=== PATIENT | male | born 1970 | race Caucasian/White ===

== ENCOUNTER → 2017-06-07 | Day surgery (SDC) | payer BC ==
[~2017-06-07] VITALS: Ht 170.2 cm; Wt 79.9 kg
[~2017-06-07] MED LIST: ATROPINE SULFATE 0.1 MG/ML 5ML SYR IV PRN; DEXAMETHASONE SOD INJ 4 MG/ML VIAL ONE; EpHEDrine SULFATE INJ 50 MG/ML AMP IV PRN; FENTANYL CITRATE INJ 50 MCG/1 ML 2 ML VIAL IV PRN; FENTANYL CITRATE INJ 50 MCG/1 ML 2 ML VIAL ONE; FLUMAZENIL 0.1 MG/1 ML 10 ML VIAL IV PRN; GLUCAGON FOR INJ 1 MG VIAL IV STA; HYDROmorphone INJ 2 MG/ML SYR/VIAL IV PRN; LABETALOL HCL IV 5 MG/ML 20ML IV ONE; LABETALOL HCL IV 5 MG/ML 20ML IV PRN; LIDOCAINE HCL 2% 2 ML VIAL (20MG/ML) ONE; MEPERIDINE HCL 25 MG/ML CARP IV PRN; NALOXONE HCL 0.4 MG/1 ML VIAL/CARP IV PRN; OMEP40CA41 PO; ONDANSETRON INJ 2 MG/ML 2 ML VIAL IV PRN; ONDANSETRON INJ 2 MG/ML 2 ML VIAL ONE; PHENYLEPHRINE 100MCG/ML 5ML SYR IV PRN; PROPOFOL IV EMULSION 10 MG/ML 20 ML VIAL IV ONE; SUCCINYLCHOLINE CHLORIDE 20 MG/ML 10 ML VIAL IV ONE; ZNTT/150 PO
[2017-06-07 17:13] VITALS: O2SAT 100; Ht 170.2 cm; Wt 79.9 kg
--- NOTE | 2017-06-07 19:18 | DIAGNOSTIC IMAGING REPORT ---
CHEST ONE VIEW PORTABLE CLINICAL HISTORY: 47 years-old Male presenting with food bolus. TECHNIQUE: Portable upright AP view of the chest was obtained. COMPARISON: 11/01/2010. FINDINGS: Cardiomediastinal silhouette normal. Lungs and pleural spaces clear. Osseous structures normal. Upper abdomen normal. IMPRESSION: 1. No acute cardiopulmonary disease. Electronically signed by: Shayne Ball M.D. 06/07/2017 7:17 PM Dictated Date/Time: 06/07/2017 7:16 PM
[2017-06-07 19:35] LABS: ISTAT HEMOGLOBIN 14.6 g/dl (14.0-18.0); ISTAT IONIZED CALCIUM 1.14 mmol/l (1.12-1.32)
--- NOTE | 2017-06-07 20:31 | Endo History and Physical ---
History & Physical Date of Service: Jun 07, 2017. Chief Complaint: Sensation of food stuck in his esophagus Referring Physician: History of Present Illness This is a 47-year-old gentleman who over one year as had intermittent trouble swallowing, this afternoon about 3:30 he began eating chicken, noodles, and chilly and was noted to have the acute onset of something stuck in his esophagus. He began to throw up liquid and some food, the sensation of something stuck there persisted to the point where he is unable to control his secretions, who presented to the emergency room. He's had no unintentional weight loss, has had chronic GERD for a number of years these treated himself with hpoo-[id number] Zantac, no blood in his emesis and no complaints of dyspnea. He's had no fevers or chills, and the only other associated signs or symptoms he has is hiccups. 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 Allergies Coded Allergies: No Known Allergies (Verified Allergy, Unknown, 10/13/02) Uncoded Allergies: N (Allergy, Unknown, 10/13/02) NKA (Allergy, Unknown, 10/13/02) SEASONAL (Allergy, Unknown, 10/13/02) Current Medications Reported Home Medications Medications Dose Route/Sig Max Daily Dose Days Date Category Dose Instructions Zantac (Ranitidine HCl) 150 Mg Tab 150 Mg PO UD PRN 06/07/17 Reported TAKE PER PACKAGE DIRECTIONS Vital Signs Weight (Kilograms): 79.900 Height (Feet): 5 Height (Inches): 7.00 Date Time Temp Pulse Resp B/P (MAP) Pulse Ox O2 Delivery O2 Flow Rate FiO2 06/07/17 20:10 77 21 06/07/17 20:09 82 19 06/07/17 20:05 80 13 06/07/17 20:04 79 21 06/07/17 19:06 77 06/07/17 17:13 36.9 79 22 147/105 100 Room Air 06/07/17 17:13 99 Room Air Review of Systems 10 system review of systems negative except for as stated as above Physical Exam General Appearance: WD/WN, no apparent distress, + mild distress Respiratory/Chest: Respiratory effort: no dyspnea Auscultation: breath sounds normal, CTA except as noted Cardiovascular: Apical Impulse: not displaced Heart Auscultation: RRR, normal S1, normal S2 Abdomen: Bowel Sounds: normal Inspection & Palpation: soft, non-distended, no tenderness, guarding & rebound Liver: non-tender Assessment and Plan 47-year-old male with symptoms of food stuck in his esophagus Plan I have discussed with him the necessity of upper endoscopy for relief of a suspected esophageal foreign body with food. I have also discussed with him the risks the benefits of the endoscopy including aspiration, bleeding and perforation. He is agreeable we'll plan to perform EGD this evening.
--- NOTE | 2017-06-07 21:11 | Discharge Instructions ---
Endoscopy Patient Instructions Date / Procedure(s) Performed Jun 07, 2017. EGD Allergy Information Coded Allergies: No Known Allergies (Verified , 10/13/02) Discharge Date / Findings Jun 07, 2017. Moderate to Large volume of food in esophagus-removed Signs concerning for Eosinophilic Esophagitis We will repeat your endoscopy in 2-3 weeks Provider Instructions Activity Restrictions - No exercising or heavy lifting for 24 hours. - Do not drink alcohol the day of the procedure. - Do not drive a car or operate machinery until the day after the procedure. - Do not make any important decisions or sign important papers in 24 hours after the procedure. Following Day: - Return to full activity which may include returning to work/school. Diet Start your diet with liquids and light foods (jello, soup, juice, toast). Then eat your usual diet if not nauseated. Treatment For Common After Affects For mild abdominal pain, bloating, or excessive gas: - Rest - Eat lightly - Lie on right side Follow-Up Information Follow-up with as scheduled Anesthesia Information What You Should Know You have had a procedure that required some medicine to reduce anxiety and discomfort. This treatment is called moderate sedation. After receiving the treatment, you may be sleepy, but you will be able to breathe on your own. The effects of the treatment may last for several hours. Follow these instructions along with Activity/Diet recommendations noted above: * Do NOT do anything where dizziness or clumsiness would be dangerous. * Rest quietly at home today, then you can be up and about tomorrow. * Have a responsible person stay with you the rest of today. * You may have had an I.V. today. If so, you may take the dressing off later today. Recommendations Call your doctor if: * Trouble breathing * Continuous vomiting for more than 24 hours * Temperature above 101 degrees * Severe abdominal pain or bloating * Pain not relieved by pain medicine ordered * There is increased drainage or redness from any incision * A large amount of rectal bleeding greater than 2-3 tablespoons. (If you had a polyp/s removed or have hemorrhoids, a small amount of blood - from the rectum is to be expected.) * You have any unanswered questions or concerns. IN THE EVENT OF A SERIOUS EMERGENCY, GO TO THE NEAREST EMERGENCY ROOM Your discharge instructions were prepared by provider Jameson Medina. Patient Instructions Signature Page Shayne Pastelok Patient (or Guardian) Signature/Date: I have read and understand the instructions given to me by my caregivers. Caregiver/RN/Doctor Signature/Date: The above-named patient and/or guardian has received patient instructions on this date. + Original Patient Signature Page (only) stays with chart. Please make copy for patient.
--- NOTE | 2017-06-07 21:18 | GI REPORT ---
Procedure Date: 06/07/2017 8:18 PM Procedure: Upper GI endoscopy Indications: Foreign body in the esophagus Medicines: General Anesthesia Complications: No immediate complications. Estimated blood loss: None. Estimated Blood Loss: Estimated blood loss: none. Procedure: Pre-Anesthesia Assessment: - Pre-Anesthesia Assessment: - Prior to the procedure, a History and Physical was performed, and patient medications, allergies and sensitivities were reviewed. The patient's tolerance of previous anesthesia was reviewed. Please see [facility] for complete details. - The risks and benefits of the procedure and the sedation options and risks were discussed with the patient. All questions were answered and informed consent was obtained. - Patient identification and proposed procedure were verified prior to the procedure by the physician and the nurse. The procedure was verified in the pre-procedure area in the procedure room. After obtaining informed consent, the endoscope was passed carefully and meticuously under direct vision and only advanced when the lumen was clearly identified, C02 insuflation was utilized throughout the entirity of the procedure. Throughout the procedure, the patient's blood pressure, pulse, and oxygen saturations were monitored continuously. After obtaining informed consent, the endoscope was passed under direct vision. Throughout the procedure, the patient's blood pressure, pulse, and oxygen saturations were monitored continuously. The scope was introduced through the mouth, and advanced to the second part of duodenum. The upper GI endoscopy was accomplished without difficulty. The patient tolerated the procedure well. Findings: Food was found in the middle third of the esophagus and in the lower third of the esophagus. Removal was accomplished with a basket and Karthik graspers. Mucosal changes including ringed esophagus were found in the upper third of the esophagus and in the middle third of the esophagus. The entire examined stomach was normal. Two non-bleeding superficial duodenal ulcers with a clean ulcer base (Bulmaro Class III) were found in the duodenal bulb. The largest lesion was 3 mm in largest dimension. Impression: - Food was found in the esophagus. Removal was successful. - Esophageal mucosal changes suspicious for eosinophilic esophagitis. - Normal stomach. - Multiple non-bleeding duodenal ulcers with a clean ulcer base (Bulmaro Class III). Recommendation: - Discharge patient to home (with escort). - Use Prilosec (omeprazole) 40 mg PO BID for 2 months. - Repeat the upper endoscopy -2-4 weeks for possible dilation and for surveillance. - Soft diet for 1 week Jameson Medina MD 06/07/2017 9:18:36 PM This report has been signed electronically. Note Initiated On: 06/07/2017 8:18 PM I attest to the content of the Intraoperative Record and orders documented therein, exceptions below
--- NOTE | 2017-06-07 21:36 | Anesthesiology Progress Note ---
Anesthesia Post Op Note Date & Time Jun 07, 2017 at 21:36 Vital Signs Pain Intensity: 0 Vital Signs Past 12 Hours Date Time Temp Pulse Resp B/P (MAP) Pulse Ox O2 Delivery O2 Flow Rate FiO2 06/07/17 21:25 76 16 152/99 98 Oxymask 5 06/07/17 21:16 36.4 76 16 150/102 98 Oxymask 10 06/07/17 20:10 77 21 06/07/17 20:09 82 19 06/07/17 20:05 80 13 06/07/17 20:04 79 21 06/07/17 19:06 77 06/07/17 17:13 36.9 79 22 147/105 100 Room Air 06/07/17 17:13 99 Room Air Notes Mental Status: alert / awake / arousable, participated in evaluation Pt Amnestic to Procedure: Yes Nausea / Vomiting: adequately controlled Pain: adequately controlled Airway Patency, RR, SpO2: stable & adequate BP & HR: stable & adequate Hydration State: stable & adequate Anesthetic Complications: no major complications apparent
[2017-06-07 21:55] VITALS: BP 148/100; PULSE 74; TEMP 36.4; O2SAT 95
[2017-06-07 22:10] VITALS: BP 143/99; PULSE 69; TEMP 36.7; O2SAT 95
--- NOTE | 2017-06-07 23:38 | EMERGENCY ROOM VISIT NOTE ---
History Report prepared by Micky: Rabia Laughlin Under the Supervision of: Dr. Randall Sheehan M.D. First contact with patient: 17:32 Chief Complaint: FOOD BOLUS Stated Complaint: FEEL LIKE SOMETHING IS STUCK IN THROAT, SOB, VOMIT Nursing Triage Summary: Feels like he has food stuck in his throat, coughing up mucous and phlegm for two hours. History of Present Illness The patient is a 47 year old male who presents to the Emergency Room with complaints of an episode of food bolus occurring 2.5 hours ago. The patient states that he was eating [id number] with chili and boneless chicken when he felt something get stuck. He reports this has happened in the past while eating Vietnamese food, but it was not this bad. The patient states that he has been continuously vomiting since this occurred and notes that he does not feel nauseous. He reports that when he leaned over the sink he got 3 whole noodles out. He reports that he is having difficulty breathing because of the hiccups. The patient complains that he cannot even keep his spit down. The patient complains of chest pain from coughing. The patient denies a family history of stricture and never had this himself. He notes he tends to have heart burn and uses Zantac as needed. Source of History: patient Onset: 2.5 hours ago Position: other (global) Quality: other ("like something is stuck") Timing: other (episode) Associated Symptoms: + chest pain, + SOB, + vomiting, No nausea Note: The patient complains of hiccups. Review of Systems See HPI for pertinent positives & negatives. A total of 10 systems reviewed and were otherwise negative. Past Medical & Surgical Medical Problems: (1) No Known Active Medical Problems Family History Patient reports no known family medical history. Social History Smoking Status: Never Smoker Drug Use: none Marital Status: Housing Status: lives with family Occupation Status: employed Current/Historical Medications Scheduled Omeprazole (Prilosec), 40 MG PO BID Scheduled PRN Ranitidine (Zantac), 150 MG PO UD PRN for Acid Reflux Allergies Coded Allergies: No Known Allergies (Verified , 10/13/02) Physical Exam Vital Signs Date Time Temp Pulse Resp B/P (MAP) Pulse Ox O2 Delivery O2 Flow Rate FiO2 06/07/17 22:10 36.7 69 16 143/99 (114) 95 Room Air 06/07/17 21:55 36.4 74 18 148/100 95 Room Air 06/07/17 21:55 36.3 73 14 148/100 96 Room Air 06/07/17 21:45 68 16 154/99 94 Room Air 06/07/17 21:35 82 16 160/96 95 Room Air 06/07/17 21:25 76 16 152/99 98 Oxymask 5 06/07/17 21:16 36.4 76 16 150/102 98 Oxymask 10 06/07/17 20:10 77 21 06/07/17 20:09 82 19 06/07/17 20:05 80 13 06/07/17 20:04 79 21 06/07/17 19:06 77 06/07/17 17:13 36.9 79 22 147/105 100 Room Air 06/07/17 17:13 99 Room Air Physical Exam Constitutional: Vital signs reviewed. The patient is spitting up his own saliva. Eyes: Pupils are equal round reactive to light. Conjunctiva are noninjected. ENT: Pharynx is clear without erythema or exudate. Mucous membranes are moist. Neck supple without meningeal signs. Respiratory: Clear to auscultation bilaterally. Breath sounds are equal bilaterally. No wheezing or stridor. Cardiovascular: Regular rate and rhythm. No rubs or gallops. GI: Soft, nondistended and nontender. Bowel sounds are present. Musculoskeletal: No peripheral edema. No lower extremity tenderness. Integumentary: No cyanosis. Neurological: The patient is awake and alert. No focal deficits. Psychiatric: Normal affect. Medical Decision & Procedures ER Provider Diagnostic Interpretation: Radiology results as stated below per my review and the radiologist's interpretation: CHEST ONE VIEW PORTABLE CLINICAL HISTORY: 47 years-old Male presenting with food bolus. TECHNIQUE: Portable upright AP view of the chest was obtained. COMPARISON: 11/01/2010. FINDINGS: Cardiomediastinal silhouette normal. Lungs and pleural spaces clear. Osseous structures normal. Upper abdomen normal. IMPRESSION: 1. No acute cardiopulmonary disease. Electronically signed by: Shayne Ball M.D. 06/07/2017 7:17 PM Dictated Date/Time: 06/07/2017 7:16 PM Laboratory Results Test 06/07/17 19:19 Bedside Hemoglobin 14.6 g/dl (14.0-18.0) Bedside Hematocrit 43 % (42-52) Bedside Sodium 141 mEq/L (135-144) Bedside Potassium 4.3 mEq/L (3.3-5.0) Bedside Chloride 105 mEq/L (101-112) Bedside Total CO2 26 mEq/l (24-31) Anion Gap 15.0 mmol/L (16-25) Bedside Blood Urea Nitrogen 13 mg/dl (7-18) Bedside Creatinine 1.0 mg/dl (0.6-1.3) Bedside Glucose (other) 161 mg/dl (70-99) Bedside Ionized Calcium (Fabián) 1.14 mmol/l (1.12-1.32) Laboratory results as reviewed by me. Medications Administered Medications (Trade) Dose Ordered Sig/Delgado Route Start Time Stop Time Status Last Admin Dose Admin Glucagon (Glucagon Inj) 1 mg NOW STAT IV 06/07/17 17:55 06/07/17 17:58 DC 06/07/17 18:27 1 MG Labetalol HCl (Normodyne IV) 5 mg STK-MED ONCE IV 06/07/17 21:21 06/07/17 21:22 DC 06/07/17 21:33 5 MG Labetalol HCl (Normodyne IV) 5 mg STK-MED ONCE IV 06/07/17 21:32 06/07/17 21:33 DC 06/07/17 21:34 5 MG ED Course 175: The patient was evaluated in room A2. A complete history and physical exam was performed. 1754: Ordered Glucagon 1 mg IV. 1845: I reevaluated the patient and he states it feels like the knot in his throat is gone, but still has a burning in his chest. 1903: I reevaluated the patient and he is still unable to keep saliva down. I am going to call GI now. 2104: I discussed the patient's case with Dr. Medina. The patient will be further evaluated by Dr. Medina. Medical Decision this is a 47-year-old male who presents with foreign body sensation in his throat and vomiting. Differential diagnosis includes esophageal food bolus impaction, esophageal stricture, achalasia, Schatzki's ring, GERD I did perform a limited focused review of portions of the patient's old chart on the electronic medical record. The patient has had no recent pertinent visits to this hospital. The patient is hypertensive. I did evaluate the patient as noted above. The patient is unable to swallow his own saliva. He was eating chicken and chili mac & cheese. IV access was established. The patient was placed on a continuous cardiac care unit nurse. I did treat patient with IV glucagon. I did order and personally review the patient' s and chest x-ray as described above. X-ray is unremarkable. I did order and review the patient's blood work as noted in the electronic medical record. I did reassess patient. He is still unable to swallow his own saliva although he did state that he felt slightly better. He did take a sip of water and immediately spit it out. I did consult Dr. medina of gastroenterology the patient was taken to the endoscopy suite for definitive care. Medication Reconcilliation Current Medication List: was personally reviewed by me Blood Pressure Screening Patient's blood pressure: Elevated blood pressure Consults Time Called: 1903 Consulting Physician: Dr. Medina Returned Call: 2104 I discussed the patient's case with Dr. Medina. The patient will be further evaluated by Dr. Medina. Impression Primary Impression: Food impaction of esophagus Scribe Attestation The scribe's documentation has been prepared under my direct and personally reviewed by me in its entirety. I confirm that the note above accurately reflects all work, treatment, procedures, and medical decision making performed by me. Departure Information Dispostion Being Evaluated By Surgeon Prescriptions Omeprazole (PRILOSEC) 40 Mg Cap 40 MG PO BID for 60 Days, #120 CAP Prov: Jameson Medina MD 06/07/17 Referrals Luis M Noel D.O. (PCP) Patient Instructions My [facility] Problem Qualifiers Primary Impression: Food impaction of esophagus Encounter type: initial encounter Qualified Codes: T18.128A - Food in esophagus causing other injury, initial encounter
== END | disposition home or self-care (01) ==
LOC: C.EDB 17:08 → C.ACU 17:10 → C.EDA 20:25
PROVIDERS: ATTEND Internal Medicine
DX: T18.128A Food in esophagus causing other injury, initial encounter (principal); I10 Essential (primary) hypertension; K21.9 Gastro-esophageal reflux disease without esophagitis; K26.9 Duodenal ulcer, unspecified as acute or chronic, without hemorrhage or perforation; X58.XXXA Exposure to other specified factors, initial encounter